=== PATIENT | female | born 1995 | race Caucasian/White ===

== ENCOUNTER 2016-12-21 22:08 | Emergency (ER) | payer OTHER ==
[~2016-12-21 22:08] MED LIST: COLACE 100MG C100 MG PO; IBUPROFEN600 MG PO; NORCO 5-325 TA1 EACH PO
== END 2016-12-21 22:35 | disposition home or self-care (01) ==
LOC: ER1 22:08
DX: Z71.1 Person with feared health complaint in whom no diagnosis is made (principal)
CPT/HCPCS: 99281

== ENCOUNTER 2017-01-14 20:00 | Emergency (ER) | payer OTHER | END 2017-01-15 03:35 | disposition home or self-care (01) | LOC: ER1 20:00 | DX: J40 Bronchitis, not specified as acute or chronic (principal) | CPT/HCPCS: 71020; 94640; 94664; 99285 ==

== ENCOUNTER 2022-06-04 03:01 | Emergency (ER) | payer OTHER ==
[~2022-06-04 03:01] MED LIST changes: +AMOXICILLIN875 MG PO; +BACTROBAN OINT22 GM EXT; +BROMFED DM COU473 ML PO; +FIORICET TAB1 EA PO; +IMITREX50 MG PO; +LOPRESSOR50 MG PO; +VENTOLIN HFA 66.7 GM INH
[2022-06-04 03:30] LABS: HEMOGLOBIN 15.3 gm/dl (12.3-15.3); RED BLOOD COUNT 4.79 M/UL (4.00-5.10); WHITE BLOOD COUNT 8.9 K/UL (4.5-11.0)
[2022-06-04 03:55] LABS: BUN/CREATININE RATIO 12 (0-10)
[2022-06-04] MEDS ORDERED: VISTARIL25 MG PO (04:12)
== END 2022-06-04 04:22 | disposition home or self-care (01) ==
LOC: ER1 03:01
PROVIDERS: Physician Assistant
DX: F41.9 Anxiety disorder, unspecified (principal); R07.89 Other chest pain; K21.9 Gastro-esophageal reflux disease without esophagitis; Z88.0 Allergy status to penicillin
CPT/HCPCS: 71045; 80053; 82550; 82553; 84484; 85025; 85379; 93005; 99285